=== PATIENT | female | born 1960 | race Caucasian/White ===

== ENCOUNTER 2016-06-17 10:05 | Emergency (ER) | payer MEDICAID ==
[2016-06-17 10:15] VITALS: TEMP 98.3; O2SAT 98
[2016-06-17] MEDS ORDERED: Oxycodone/Acetaminophen 5/325 mg Tab PO STA (11:23)
[2016-06-17] MEDS ORDERED: Oxycodone/Acetaminophen 5/325 mg Tab ONE (11:29)
--- NOTE | 2016-06-17 13:41 | MRI ---
MRI cervical spine History: Pain and numbness in both arms. Herniated disc. Comparison: None available. Technique: Multi-echo multiplanar sequences were performed through the cervical spine without the use of intravenous contrast. Findings: Reversal of the normal cervical lordosis. Signal artifact within the spinal cord on the sagittal STIR sequences likely represents pulsation artifact. Heterogeneity of the visualized marrow with patchy decreased T1 signal suggestive for hematopoietic marrow reconversion. Narrowing of the C5-6 disc space with endplate reactive edema. Mild reactive edema seen within the posterior superior endplate of the C7 vertebral body. Mild loss of height of the C5 and C6 vertebral bodies. C2-3: No significant disc herniation, spinal canal stenosis, or neural foraminal narrowing. C3-4: Small midline posterior central disc protrusion contacting the anterior thecal sac. No significant spinal canal stenosis or neural foraminal narrowing. C4-5: Moderate-sized broad-based posterior disc bulge contacting the anterior thecal sac as well as the anterior spinal cord. Mild to moderate spinal canal stenosis. Moderate bilateral neural foraminal narrowing. C5-6: Moderate-sized broad-based posterior disc bulge contacting the anterior thecal sac and anterior spinal cord. Moderate spinal canal stenosis. Moderate bilateral neural foraminal narrowing. C6-7: Severe midline posterior central disc protrusion contacting the anterior thecal sac and anterior spinal cord. Moderate to severe spinal canal stenosis. Moderate bilateral neural foraminal narrowing. C7-T1: No significant disc herniation, spinal canal stenosis, or neural foraminal narrowing. Incidentally noted is a minimal posterior disc bulge at the T3-4 level. Impression: Multilevel posterior disc bulges as described, most severe at the C6-7 level, where there is a severe spinal canal stenosis.
--- NOTE | 2016-06-17 13:44 | C.PDOC ---
History Of Present Illness 56 year old female presents to the ED with complaints of increased pain to her bilateral shoulders and arms for the past 3 days. Patient states she has had numbness to her right thumb, index finger, and especially her middle finger and to the left ring and pinky fingers. Patient has a history of a herniated disc to her neck and was diagnosed with a MRI last year. She also has a herniated disc to her lower back that was operated on several years ago. She is on pain management and took her last Percocet yesterday. Denies fever, trauma, fall, or any other complaints at this time. Time Seen by Provider: 06/17/16 10:28 Chief Complaint (Nursing): Upper Extremity Problem/Injury History Per: Patient History/Exam Limitations: no limitations Onset/Duration Of Symptoms: Days Current Symptoms Are (Timing): Still Present Severity: Mild Past Medical History Reviewed: Historical Data, Nursing Documentation, Vital Signs Vital Signs: Last Vital Signs Temp 98.3 F 06/17/16 10:14 Pulse 75 06/17/16 14:35 Resp 18 06/17/16 14:35 BP 124/75 06/17/16 14:35 Pulse Ox 98 06/17/16 14:35 - Medical History PMH: Arthritis, Asthma (when sick with common cold), Back Problems, HTN, Hypercholesterolemia Surgical History: Back Surgery (1989) Family History: States: Hypertension - Social History Hx Tobacco Use: Yes Hx Alcohol Use: Yes (socially drink beer) Hx Substance Use: No - Immunization History Hx Tetanus Toxoid Vaccination: No Hx Influenza Vaccination: No Hx Pneumococcal Vaccination: No Review Of Systems Except As Marked, All Systems Reviewed And Found Negative. Constitutional: Positive for: Chills. Negative for: Fever Musculoskeletal: Positive for: Shoulder Pain (+Bilateral shoulder pain), Arm Pain (+Bilateral arm pain) Neurological: Positive for: Numbness Physical Exam - Physical Exam Appears: Non-toxic, No Acute Distress Skin: Normal Color, Warm, Dry Head: Atraumatic, Normacephalic Oral Mucosa: Moist Neck: Decreased ROM, Paracervical Tenderness (+Diffuse C-spine tenderness) Chest: Symmetrical Cardiovascular: Rhythm Regular, No Murmur Respiratory: Normal Breath Sounds Extremity: Tenderness (difuse both shoulder areas with decreased rom), Capillary Refill (< 2 seconds), No Deformity Extremity: Bilateral: Normal Color And Temperature, Other (no swelling or rash) Pulses: Left Brachial: Normal, Right Brachial: Normal, Left Radial: Normal, Right Radial: Normal Neurological/Psych: Oriented x3, Normal Speech, Normal Cognition, Normal Sensation (Decreased sensation over the lateral aspect of the right hand and medial aspect of the left hand), No Other (Decreased strength to the bilateral arms) Gait: With Assistance Extremity: Right: No Drift, Left: No Drift, Upper: No Drift ED Course And Treatment O2 Sat by Pulse Oximetry: 98 (Room air) Pulse Ox Interpretation: Normal - Other Rad Cervical Spine MRI X-Ray: Viewed By Me, Read By Radiologist Interpretation: Findings: Reversal of the normal cervical lordosis. Signal artifact within the spinal cord on the sagittal STIR sequences likely represents pulsation artifact. Heterogeneity of the visualized marrow with patchy decreased T1 signal suggestive for hematopoietic marrow reconversion. Narrowing of the C5-6 disc space with endplate reactive edema. Mild reactive edema seen within the posterior superior endplate of the C7 vertebral body. Mild loss of height of the C5 and C6 vertebral bodies. C2-3: No significant disc herniation, spinal canal stenosis, or neural foraminal narrowing. C3-4: Small midline posterior central disc protrusion contacting the anterior thecal sac. No significant spinal canal stenosis or neural foraminal narrowing. C4-5: Moderate-sized broad-based posterior disc bulge contacting the anterior thecal sac as well as the anterior spinal cord. Mild to moderate spinal canal stenosis. Moderate bilateral neural foraminal narrowing. C5-6: Moderate-sized broad-based posterior disc bulge contacting the anterior thecal sac and anterior spinal cord. Moderate spinal canal stenosis. Moderate bilateral neural foraminal narrowing. C6-7: Severe midline posterior central disc protrusion contacting the anterior thecal sac and anterior spinal cord. Moderate to severe spinal canal stenosis. Moderate bilateral neural foraminal narrowing. C7-T1: No significant disc herniation, spinal canal stenosis, or neural foraminal narrowing. Incidentally noted is a minimal posterior disc bulge at the T3-4 level. Impression: Multilevel posterior disc bulges as described, most severe at the C6-7 level, where there is a severe spinal canal stenosis. Progress Note: Cervical Spine MRI ordered and reviewed. Patient treated with Percocet. Rx given and patient advised outpatient follow up. Medical Decision Making Medical Decision Making: Post meds feeling better njrx checked one provider one pharm Rx q 1mth Narcotics indicated after discussion pt felt T'3's would be adequate Reselts of MRI discussed and given to pt. Need for follow up with her PCP pain doc and neurosurgeon this week was stressed and understood by pt Disposition Counseled Patient/Family Regarding: Diagnosis, Need For Followup - Disposition Referrals: Shaik Ignacio MD [Primary Care Provider] - Disposition: HOME/ ROUTINE Disposition Time: 13:58 Condition: FAIR Additional Instructions: Follow up with PCP and pain doc Prescriptions: Famotidine [Pepcid] 1 tab PO BID #30 tab Acetaminophen/Codeine [Tylenol/Codeine 300 MG/30 MG] 1 tab PO Q4H PRN #25 tab PRN Reason: .severe pain Instructions: Cervical Radiculopathy (ED) - Clinical Impression Clinical Impression: Cervical radiculopathy - Scribe Statement The provider has reviewed the documentation as recorded by the Scribe Joe Oleary. Provider Attestation: All medical record entries made by the Scribe were at my direction and personally dictated by me. I have reviewed the chart and agree that the record accurately reflects my personal performance of the history, physical exam, medical decision making, and the department course for this patient. I have also personally directed, reviewed, and agree with the discharge instructions and disposition.
[2016-06-17 14:35] VITALS: BP 124/75; PULSE 75; RESP 18
== END 2016-06-17 14:37 | disposition home or self-care (01) ==
LOC: SUPCPDRO 10:05 → C.ER 10:05
DX: M54.12 Radiculopathy, cervical region (principal)

== ENCOUNTER 2017-02-12 13:27 | Emergency (ER) | payer MEDICAID ==
--- NOTE | 2017-02-12 14:51 | C.PDOC ---
History Of Present Illness 57yo female, with history of back surgeries, presents to ED for evaluation of back pain, present for the past 3 days. She reports she has been taking her pain medications at home with no relief. She denies any new trauma or injuries. She also denies any fever, chills, bowel or bladder incontinence, saddle anesthesia. She has no other medical complaints. Chief Complaint (Nursing): Back Pain History Per: Patient History/Exam Limitations: no limitations Onset/Duration Of Symptoms: Days (3) Current Symptoms Are (Timing): Still Present Quality Of Discomfort: "Pain" Previous Symptoms: Prior Surgery Associated Symptoms: None Additional History Per: Patient Past Medical History Reviewed: Historical Data, Nursing Documentation, Vital Signs Vital Signs: Last Vital Signs Temp 97 F L 02/12/17 17:14 Pulse 87 02/12/17 17:14 Resp 20 02/12/17 17:14 BP 128/71 02/12/17 17:14 Pulse Ox 96 02/12/17 17:14 - Medical History PMH: Arthritis, Asthma (when sick with common cold), Back Problems, HTN, Hypercholesterolemia Denies: Chronic Kidney Disease Surgical History: Back Surgery (1989) Family History: States: Hypertension - Social History Hx Tobacco Use: Yes Hx Alcohol Use: Yes (socially drink beer) Hx Substance Use: No - Immunization History Hx Tetanus Toxoid Vaccination: No Hx Influenza Vaccination: No Hx Pneumococcal Vaccination: No Review Of Systems Except As Marked, All Systems Reviewed And Found Negative. Constitutional: Negative for: Fever, Chills Genitourinary: Negative for: Incontinence Musculoskeletal: Positive for: Back Pain Neurological: Negative for: Other (saddle anesthesia) Physical Exam - Physical Exam Appears: Non-toxic, Other (mild painful distress) Skin: Normal Color Head: Atraumatic, Normacephalic Eye(s): bilateral: Normal Inspection Neck: Supple Cardiovascular: Rhythm Regular Respiratory: Normal Breath Sounds Back: Paraspinal Tenderness (left paralumbar region tenderness), Straight Leg Raising (positive left leg at 30 degrees) Pulses: Left Dorsalis Pedis: Normal (left PT pulses 2+ as well), Right Dorsalis Pedis: Normal (right PT pulses 2+ as well) ED Course And Treatment O2 Sat by Pulse Oximetry: 97 (RA) Pulse Ox Interpretation: Normal Medical Decision Making Medical Decision Making: Impression: Back pain Plan: -- XR lumbar spine -- Flexeril 10 mg PO -- Toradol 60 mg IM -- Morphine 4 mg IM -- Urinalysis Time: 1606 XR Lumbar Spine FINDINGS: BONES: Slight inferior leftward lumbar convexity. Incomplete closure at S1 posterior elements. Spondylosis L2-3 and L4-5 levels. No compression fractures seen L5 and [id number] facet hypertrophic arthrosis. . No listhesis. No fracture. DISC SPACES: L4-5 and L5-S1 marked disc space narrowing with vacuum disc phenomenon. OTHER FINDINGS: Stool retention IMPRESSION: No fracture. Inferior mild levo scoliosis versus positioning Lumbar spondylosis, facet arthrosis and degenerative disc disease Time: 1655 Patient reports feeling improvement of pain. Stable for discharge home. Advised to continue taking pain medication as previously prescribed. Disposition Counseled Patient/Family Regarding: Studies Performed, Diagnosis, Need For Followup - Disposition Disposition: HOME/ ROUTINE Disposition Time: 16:53 Condition: IMPROVED Additional Instructions: follow up with your doctor in 2 days call to make an appointment take medications as prescribed previously return to hospital if symptoms worsens or progress Prescriptions: Cyclobenzaprine [Cyclobenzaprine HCl] 10 mg PO TID PRN #12 tab PRN Reason: Muscle Spasm Instructions: Sciatica (ED), Chronic Back Pain (ED) Forms: [facility] (Hebrew), General Discharge Instructions - Clinical Impression Clinical Impression: Sciatica, Chronic low back pain - Scribe Statement The provider has reviewed the documentation as recorded by the Ericka Shaw Provider Attestation: All medical record entries made by the Ericka were at my direction and personally dictated by me. I have reviewed the chart and agree that the record accurately reflects my personal performance of the history, physical exam, medical decision making, and the department course for this patient. I have also personally directed, reviewed, and agree with the discharge instructions and disposition.
[2017-02-12] MEDS ORDERED: Morphine 4 MG/ML VIAL IM STA (14:52)
[2017-02-12] MEDS ORDERED: Morphine 4 MG/ML VIAL ONE (14:58)
[2017-02-12 15:17] LABS: RBC URINE < 1 /hpf (0-3); URINE BILIRUBIN NEGATIVE (NEGATIVE); URINE BLOOD NEGATIVE (NEGATIVE); URINE COLOR Yellow (YELLOW); URINE GLUCOSE (UA) NORMAL (Normal); URINE KETONE NEGATIVE (NEGATIVE); URINE LEUKOCYTE ESTERASE TRACE Leu/uL (Negative); URINE PROTEIN NEGATIVE (NEGATIVE); URINE UROBILINOGEN NORMAL mg/dL (0.2-1.0); WBC URINE 5 /hpf (0-5)
--- NOTE | 2017-02-12 16:07 | RAD ---
PROCEDURE: Radiographs of the Lumbar Spine. HISTORY: back pain COMPARISON: No prior. FINDINGS: BONES: Slight inferior leftward lumbar convexity. Incomplete closure at S1 posterior elements. Spondylosis L2-3 and L4-5 levels. No compression fractures seen L5 and [id number] facet hypertrophic arthrosis. . No listhesis. No fracture. DISC SPACES: L4-5 and L5-S1 marked disc space narrowing with vacuum disc phenomenon. OTHER FINDINGS: Stool retention IMPRESSION: No fracture. Inferior mild levo scoliosis versus positioning Lumbar spondylosis, facet arthrosis and degenerative disc disease
[2017-02-12] MEDS ORDERED: Dexamethasone 4 mg/1 ml IM STA (16:29)
[2017-02-12] MEDS ORDERED: Dexamethasone 4 mg/1 ml ONE (16:35)
[2017-02-12 17:15] VITALS: BP 128/71; PULSE 87; RESP 20; TEMP 97
[2017-02-18 00:22] VITALS: O2SAT 97
== END 2017-02-12 17:15 | disposition home or self-care (01) ==
LOC: C.ER 13:27
DX: G89.29 Other chronic pain (principal); M54.42 Lumbago with sciatica, left side
CPT/HCPCS: 72100; 81001; 96372; 99285; J1100; J1885; J2270

== ENCOUNTER 2017-02-20 12:06 | Emergency (ER) | payer MEDICAID ==
[2017-02-20 12:10] VITALS: BP 105/63; PULSE 115; RESP 20; TEMP 98.5; O2SAT 94
[2017-02-20] MEDS ORDERED: Oxycodone/Acetaminophen 5/325 mg Tab PO STA (12:31)
[2017-02-20] MEDS ORDERED: Oxycodone/Acetaminophen 5/325 mg Tab ONE (12:44)
--- NOTE | 2017-02-20 13:20 | C.PDOC ---
History Of Present Illness Lizz Owusu is a 57 y/o female presenting to the ER with left buttock pain radiating down left thigh, consistent with prior diagnosis of sciatica. Patient has been alternating infrequent ice and heat therapy which she notes makes her symptoms worse. Reports she took 1 tab of percocet 10/325 at 4:30 this morning but none since. She states she wanted to see what we would give her. Denies any associated lower extremity weakness, paresthesia, or genital dysfunction. PMD: Shaik Mateus MD Time Seen by Provider: 02/20/17 12:19 Chief Complaint (Nursing): Back Pain History Per: Patient History/Exam Limitations: no limitations Onset/Duration Of Symptoms: Persistent Current Symptoms Are (Timing): Still Present Previous Symptoms: Back Pain, Chronic Pain Associated Symptoms: None Past Medical History Reviewed: Historical Data, Nursing Documentation, Vital Signs Vital Signs: Last Vital Signs Temp 98.5 F 02/20/17 12:07 Pulse 115 H 02/20/17 12:07 Resp 20 02/20/17 12:07 BP 105/63 02/20/17 12:07 Pulse Ox 94 L 02/20/17 14:30 - Medical History PMH: Arthritis, Asthma (when sick with common cold), Back Problems, HTN, Hypercholesterolemia Denies: Chronic Kidney Disease Surgical History: Back Surgery (1989) Family History: States: Hypertension - Social History Hx Tobacco Use: Yes Hx Alcohol Use: Yes (socially drink beer) Hx Substance Use: No - Immunization History Hx Tetanus Toxoid Vaccination: No Hx Influenza Vaccination: No Hx Pneumococcal Vaccination: No Review Of Systems Except As Marked, All Systems Reviewed And Found Negative. Genitourinary: Negative for: Incontinence (of bladder or bowel) Musculoskeletal: Positive for: Other (left buttock pain radiating down left thigh) Neurological: Negative for: Weakness, Numbness, Other (paresthesias) Physical Exam - Physical Exam Appears: Non-toxic, No Acute Distress, Other (Morbidly obese. Tearful on exam) Skin: Normal Color, Warm, Dry Head: Atraumatic, Normacephalic Eye(s): bilateral: Normal Inspection, PERRL, EOMI Oral Mucosa: Moist Neck: Normal, Normal ROM Cardiovascular: Rhythm Regular Respiratory: Normal Breath Sounds, No Accessory Muscle Use Back: No Vertebral Tenderness (midline lumbar tenderness), Other (Tenderness to left upper buttock) Extremity: Normal ROM, No Deformity Neurological/Psych: Oriented x3, Normal Speech, Normal Motor, Normal Sensation ED Course And Treatment O2 Sat by Pulse Oximetry: 94 (RA) Pulse Ox Interpretation: Normal Progress Note: Toradol, percocet x 2, ice pack Reevaluation Time: 13:17 Reassessment Condition: Improved Medical Decision Making Medical Decision Making: Records reviewed: Pt evaluated here on 02/[address] Martinez, and had normal LS Spine films showing degenerative disc disease. Had C-spine MRI in 06/2016 showing multilevel posterior disc bulges. Also had CT Abd/Pelvis in 02/2016 significant for lumbosacral degenerative disc disease. Impression: chronic lower back pain and cervical pain with chronic pain specialist Has [facility]17 ice therapy 1/2 hour per hour and NO heat educated recent radiology non-contributory ok to f/u w pmd and pain specialist muscle relaxers NOT refilled as pt on high dose Perc and overweight and walking with cane, and relief/help of muscle relaxers do not seem to be more benefit than pt's falls risk. Disposition Doctor Will See Patient In The: Office Counseled Patient/Family Regarding: Studies Performed, Diagnosis - Disposition Referrals: [facility] [Outside] Shaik Ignacio MD [Staff Provider] - Nany Li MD [Staff Provider] - Disposition: HOME/ ROUTINE Disposition Time: 13:20 Condition: GOOD Additional Instructions: ice packs to L buttock area 1/2 hour per hour, nothing hot Motrin 400-600 mg every 6 hours for inflammatory relief Pepcid 20 mg at night to prevent stomach irritation from the Motrin. Continue percocet as already prescribed. Follow-up with your chronic pain specialist. Prescriptions: Famotidine [Acid Assistant Men'S Lacrosse Coach] 20 mg PO HS #30 tablet Famotidine [Pepcid] 20 mg PO HS #30 tab Ibuprofen [Motrin] 600 mg PO Q6H PRN #20 tab PRN Reason: Pain, Moderate (4-7) Instructions: Sciatica (ED) Forms: [employer] (Spanish) - Clinical Impression Clinical Impression: Sciatica of left side - Scribe Statement The provider has reviewed the documentation as recorded by the Scribe (Nicki Billings) Provider Attestation: All medical record entries made by the Scribe were at my direction and personally dictated by me. I have reviewed the chart and agree that the record accurately reflects my personal performance of the history, physical exam, medical decision making, and the department course for this patient. I have also personally directed, reviewed, and agree with the discharge instructions and disposition.
== END 2017-02-20 13:27 | disposition home or self-care (01) ==
LOC: C.ER 12:06
DX: M54.32 Sciatica, left side (principal)
CPT/HCPCS: 96372; 99284; J1885

== ENCOUNTER 2018-03-12 10:59 | Outpatient (CLI) | payer MEDICAID | END 2018-03-12 11:00 | disposition home or self-care (01) | LOC: C.MAMMO 10:59 | DX: Z12.31 Encounter for screening mammogram for malignant neoplasm of breast (principal) ==